=== PATIENT | male | born 1965 | race Hispanic/Latino ===

== ENCOUNTER 2017-11-27 07:20 | Day surgery (SDC) | payer OTHER ==
[~2017-11-27] VITALS: Ht 182.9 cm; Wt 101.8 kg
[2017-11-27 07:52] VITALS: BP 150/85
[2017-11-27] MEDS ORDERED: LOSA50TA37 PO (08:37)
[2017-11-27] MEDS ORDERED: CHOL500051 PO (08:37)
[2017-11-27] MEDS ORDERED: ROSU10TA35 PO (08:37)
[2017-11-27] MEDS ORDERED: SODIUM CHLORIDE 0.9% 1000ML 1,000 ML IV ONE (08:39)
[2017-11-27] MEDS ORDERED: PROPOFOL 10 MG/ML 20ML VIAL IV ONE ×2 (09:31→09:32)
[2017-11-27] MEDS ORDERED: FENTANYL CITRATE PF 50 MCG/1 ML 2ML VIAL ONE (09:31)
[2017-11-27 09:59] VITALS: BP 109/72
== END 2017-11-27 10:20 | disposition home or self-care (01) ==
LOC: DAH 07:20
PROVIDERS: ATTEND Internal Medicine Gastroenterology
DX: K52.9 Noninfective gastroenteritis and colitis, unspecified (principal); Z68.31 Body mass index [BMI] 31.0-31.9, adult; K21.9 Gastro-esophageal reflux disease without esophagitis; I10 Essential (primary) hypertension; E78.5 Hyperlipidemia, unspecified; Z79.899 Other long term (current) drug therapy; K57.30 Diverticulosis of large intestine without perforation or abscess without bleeding; K56.2 Volvulus
CPT/HCPCS: 45380; 88305; 88313; A4606; J2704 ×2; J3010; J7030